=== PATIENT | female | born 1995 | race Caucasian/White ===

== ENCOUNTER 2020-06-06 18:39 | Emergency (ER) | payer SELFPAY ==
[~2020-06-06] VITALS: Ht 160 cm; Wt 54.4 kg
[2020-06-06 18:39] VITALS: BP_SYST 0
--- NOTE | 2020-06-06 18:39 | NUR ---
Pt in room 1, unresponsive, receiving CPR. 20G IV in L AC received 1mg epi, glucose 170.
--- NOTE | 2020-06-06 18:39 | NUR ---
Patient to ER bed 1 to gown for evaluation. Side rails up.
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
--- NOTE | 2020-06-06 18:40 | NUR ---
Pt received 2mg Narcan, pause CPR for pulse check
--- NOTE | 2020-06-06 18:42 | NUR ---
1mg epi administered
--- NOTE | 2020-06-06 18:44 | NUR ---
1mg epi and 1 amp Bicarb administered
--- NOTE | 2020-06-06 18:46 | NUR ---
1mg epi administered, rhythm check PEA. 2L NS began infusing
--- NOTE | 2020-06-06 18:47 | NUR ---
0.2ml (0.5mg/5ml) Flumazenil administered, ET tube inserted
--- NOTE | 2020-06-06 18:48 | NUR ---
1mg epi administered, rhythm check PEA.
--- NOTE | 2020-06-06 18:50 | NUR ---
1mg epi, rhythm asystole.
--- NOTE | 2020-06-06 18:52 | NUR ---
Rhythm change from PEA to asystole. RAC 20G access achieved.
--- NOTE | 2020-06-06 18:54 | NUR ---
1mg epi administered, 3rd liter NS administered
--- NOTE | 2020-06-06 18:54 | NUR ---
Levy catheter inserted urine sent to lab
--- NOTE | 2020-06-06 18:55 | NUR ---
200joules shock to patient in rhythm PEA
--- NOTE | 2020-06-06 18:55 | NUR ---
Pulse check asystole
--- NOTE | 2020-06-06 18:57 | NUR ---
300mg Amiodarone administered
--- NOTE | 2020-06-06 18:59 | NUR ---
1mg Epi administered/ Pulse check/ Rhythm asystole
--- NOTE | 2020-06-06 18:59 | NUR ---
MD Saldivar pronounced time of
--- NOTE | 2020-06-06 19:10 | NUR ---
[facility] [employer] called for pt, R [id number]
--- NOTE | 2020-06-06 19:25 | NUR ---
[employer] spoken to regarding pt case, [id number]
[2020-06-06 19:39] VITALS: BP_SYST 0
[2020-06-06 19:48] LABS: METHAMPHETAMINES SCREEN,URINE POSITIVE (NEG <=500); UR TRICYCLIC ANTIDEPRESSANTS POSITIVE (NEG <=300)
[2020-06-06 19:49] LABS: BARBITURATE, URINE NEGATIVE (NEG <=200); BENZODIAZEPINE, URINE NEGATIVE (NEG <=150); CANNABINOID, URINE NEGATIVE (NEG <=50); COCAINE, URINE NEGATIVE (NEG <=150); OPIATE, URINE NEGATIVE (NEG <=100); PHENCYCLIDINE SCREEN,URINE NEGATIVE (NEG <=25); URINE AMPHETAMINE NEGATIVE (NEG <=500); URINE METHADONE NEGATIVE (NEG <=200); URINE OXYCODONE SCREEN NEGATIVE (NEG <=100); URINE PROPOXYPHENE SCREEN NEGATIVE (NEG <=300)
--- NOTE | 2020-06-06 20:00 | NUR ---
Pt suicide note brought by . Note by pt asking to contact therapist along with information. Therapist contacted via email asked to contact hospital immediately
--- NOTE | 2020-06-06 20:06 | NUR ---
Spoke w/ officer Isaiah from [facility]'s department. Daryl currently attempting to contact the family. Pt's suicide note was found per .
[2020-06-06 22:13] LABS: BASOPHILS % (AUTO) 0.3 % (0.0-2.0); EOSINOPHILS % (AUTO) 0.2 % (0.0-4.0); HEMATOCRIT 27.7 % (36-48); HEMOGLOBIN 8.7 g/dL (12.0-16.0); LYMPHOCYTES # (AUTO) 2.3 K/uL (1.0-5.5); LYMPHOCYTES % (AUTO) 28.8 % (20.5-51.5); MEAN CORPUSCULAR HEMOGLOBIN 29 pg (27-31); MEAN CORPUSCULAR HGB CONC 31 % (32-36); MEAN CORPUSCULAR VOLUME 92 fL (79.0-98.0); MONOCYTES # (AUTO) 0.6 K/uL (0.0-1.0); MONOCYTES % (AUTO) 7.6 % (1.7-9.3); NEUTROPHILS # (AUTO) 5.1 K/uL (1.8-7.7); NEUTROPHILS % (AUTO) 63.1 % (40.0-70.0); PLATELET COUNT (AUTO) 222 K/uL (130-430); RED CELL DISTRIBUTION WIDTH 15.8 % (9.0-15.0); WHITE BLOOD COUNT (AUTO) 8.1 K/uL (4.8-10.8)
[2020-06-06 22:23] LABS: CALCIUM 7.7 mg/dL (8.4-11.0); CREATININE 1.11 mg/dL (0.55-1.30); POTASSIUM 3.2 mmol/L (3.5-5.1)
[2020-06-06 22:28] LABS: ALBUMIN 2.6 g/dL (3.4-4.8); TOTAL BILIRUBIN 0.1 mg/dL (0.0-1.0)
--- NOTE | 2020-06-07 09:08 | NUR ---
MD Corbin spoke to mother Stacia Arriaga regarding patient status. Pt mother left contact information for [employer] [phone]
== END 2020-06-06 19:00 | disposition expired ==
LOC: SED 18:39
DX: I46.9 Cardiac arrest, cause unspecified (principal)
CPT/HCPCS: 36415; 36600; 71045; 80053; 80307; 82803-TC; 85025; 92950; 99285